=== PATIENT | male | born 1975 | race Native Hawaiian/Other Pacific Islander ===

== ENCOUNTER 2016-09-13 06:50 | Emergency (ER) | payer OTHER ==
[2016-09-13 07:07] VITALS: BP 108/64
[2016-09-13 07:38] LABS: Basophils % (Auto) 1.2 % (0.0-1.8); Eosinophils % (Auto) 13.1 % (0.0-4.3); Hematocrit 41.7 % (35.5-45.6); Mean Corpuscular HGB Conc 34 % (32-34); Mean Corpuscular Hemoglobin 31 pg (28-32); Mean Corpuscular Volume 93 fl (84-94); Platelet Count 223 K/mm3 (140-440); Red Blood Count 4.48 M/mm3 (3.65-5.03); Red Cell Distribution Width 13.1 % (13.2-15.2); White Blood Count 5.6 K/mm3 (4.5-11.0)
--- NOTE | 2016-09-13 07:48 | Emergency Department Report ---
ED Shortness of Breath HPI - General Chief Complaint: Dyspnea/Respdistress Stated Complaint: CHEST PAIN / JIGNESH Time Seen by Provider: 09/13/16 07:33 Source: patient, family Mode of arrival: Ambulatory Limitations: No Limitations - History of Present Illness Initial Comments: Patient here with his family complaining of left-sided chest pain 4 weeks. Reports shortness of breath. No nausea vomiting. No radiation of pain. Denies any trauma. This is pain on and off. Reports pain is worse when he takes a deep breath breath and denies any cough or nasal congestion. Denies any fever or chills. Denies taking any hormone, long distance travel by car or airplane, personal history of blood clots or family history of blood clots. Pain is 4 out of 10 feels sharp. [id number] pain medication did not help. Patient has no history of heart disease he has a history of childhood asthma. MD Complaint: shortness of breath, cough, chest pain, pain with inspiration Onset/Timin -: week(s) Radiation: other (none) Severity: mild Pain Scale: 4 Quality: sharp Consistency: intermittent Improves With: rest Worsens With: movement, inspiration Known History Of: asthma (childhood) Context: other (unknown) Associated Symptoms: chest pain, pain with inspiration Treatments Prior to Arrival: none - Related Data Home Oxygen Therapy: No Previous Rx's Medication Instructions Recorded Last Taken Type Ibuprofen [Motrin] 600 mg PO Q8H PRN #15 tablet 09/13/16 Unknown Rx Allergies Allergy/AdvReac Type Severity Reaction Status Date / Time No Known Allergies Allergy Verified 09/13/16 06:59 ED Review of Systems ROS: Stated complaint: CHEST PAIN / JIGNESH Other details as noted in HPI Comment: All other systems reviewed and negative Constitutional: denies: chills, fever ENT: denies: ear pain, throat pain, congestion Respiratory: shortness of breath, SOB with exertion, SOB at rest. denies: cough , orthopnea, wheezing Cardiovascular: chest pain. denies: palpitations, edema, syncope Gastrointestinal: denies: abdominal pain, nausea, vomiting, diarrhea Musculoskeletal: denies: back pain, joint swelling, arthralgia, myalgia Skin: denies: rash Neurological: denies: headache, weakness, numbness, paresthesias, confusion, abnormal gait, vertigo ED Past Medical Hx - Past Medical History Previous Medical History?: Yes Hx Asthma: Yes (as a child) - Surgical History Past Surgical History?: No - Family History Family history: asthma - Social History Smoking Status: Former Smoker Substance Use Type: None - Medications Home Medications: Home Medications Medication Instructions Recorded Confirmed Last Taken Type Ibuprofen [Motrin] 600 mg PO Q8H PRN #15 tablet 09/13/16 Unknown Rx ED Physical Exam - General Limitations: No Limitations General appearance: alert, in no apparent distress - Head Head exam: Present: atraumatic, normocephalic, normal inspection - Eye Eye exam: Present: normal appearance, PERRL, EOMI. Absent: nystagmus, periorbital swelling, periorbital tenderness Pupils: Present: normal accommodation - ENT ENT exam: Present: normal exam, normal orophraynx, mucous membranes moist, TM's normal bilaterally, normal external ear exam - Neck Neck exam: Present: normal inspection, full ROM. Absent: tenderness, meningismus, lymphadenopathy - Respiratory Respiratory exam: Present: normal lung sounds bilaterally, chest wall tenderness (left chest wall tender to palpate). Absent: respiratory distress, wheezes, rales, rhonchi, stridor, accessory muscle use, decreased breath sounds , prolonged expiratory - Cardiovascular Cardiovascular Exam: Present: normal rhythm, bradycardia (asymptomatic), normal heart sounds. Absent: systolic murmur, diastolic murmur - GI/Abdominal GI/Abdominal exam: Present: soft, normal bowel sounds. Absent: distended, tenderness, guarding, rebound, rigid - Extremities Exam Extremities exam: Present: normal inspection, full ROM, normal capillary refill. Absent: tenderness, pedal edema, joint swelling, calf tenderness - Back Exam Back exam: Present: normal inspection, full ROM. Absent: tenderness, CVA tenderness (R), CVA tenderness (L), muscle spasm, paraspinal tenderness, vertebral tenderness, rash noted - Neurological Exam Neurological exam: Present: alert, oriented X3, normal gait, reflexes normal. Absent: motor sensory deficit - Psychiatric Psychiatric exam: Present: normal affect, normal mood - Skin Skin exam: Present: warm, dry, intact, normal color. Absent: rash ED Course Vital Signs 09/13/16 06:50 Temperature 98.2 F Pulse Rate 54 L Respiratory 20 Rate Blood Pressure 108/64 [Right] O2 Sat by Pulse 100 Oximetry - Reevaluation(s) Reevaluation #1: 09/13/16 09:33 Patient had lab work with negative cardiac enzymes and other labs are stable. Awaiting CTA of the chest results. Patient is stable and in no acute distress. ED Medical Decision Making - Lab Data Result diagrams: 09/13/16 07:21 09/13/16 07:21 Lab Results 09/13/16 09/13/16 09/13/16 Range/Units 07:21 07:21 07:21 WBC (4.5-11.0) K/mm3 RBC (3.65-5.03) M/mm3 Hgb (11.8-15.2) gm/dl Hct (35.5-45.6) % MCV (84-94) fl MCH (28-32) pg MCHC (32-34) % RDW (13.2-15.2) % Plt Count (140-440) K/mm3 Lymph % (Auto) (13.4-35.0) % Thurston % (Auto) (0.0-7.3) % Eos % (Auto) (0.0-4.3) % Baso % (Auto) (0.0-1.8) % Lymph # (1.2-5.4) K/mm3 Thurston # (0.0-0.8) K/mm3 Eos # (0.0-0.4) K/mm3 Baso # (0.0-0.1) K/mm3 Seg Neutrophils % (40.0-70.0) % Seg Neutrophils # (1.8-7.7) K/mm3 VBG pH 7.367 (7.320-7.420) Sodium 141 (137-145) mmol/L Potassium 3.9 (3.6-5.0) mmol/L Chloride 101.8 (98-107) mmol/L Carbon Dioxide 27 (22-30) mmol/L Anion Gap 16 mmol/L BUN 12 (9-20) mg/dL Creatinine 0.9 (0.8-1.5) mg/dL Estimated GFR > 60 ml/min BUN/Creatinine Ratio 13.33 % Glucose 99 (75-100) mg/dL Lactic Acid 1.00 (0.7-2.0) mmol/L Calcium 8.8 (8.4-10.2) mg/dL Magnesium 2.40 H (1.7-2.3) mg/dL Total Creatine Kinase 95 (55-170) units/L CK-MB (CK-2) < 1.0 (0.0-4.0) ng/mL CK-MB (CK-2) Rel Index 1.0 (0-4) Troponin T < 0.010 (0.00-0.029) ng/mL 09/13/16 Range/Units 07:21 WBC 5.6 (4.5-11.0) K/mm3 RBC 4.48 (3.65-5.03) M/mm3 Hgb 14.0 (11.8-15.2) gm/dl Hct 41.7 (35.5-45.6) % MCV 93 (84-94) fl MCH 31 (28-32) pg MCHC 34 (32-34) % RDW 13.1 L (13.2-15.2) % Plt Count 223 (140-440) K/mm3 Lymph % (Auto) 34.7 (13.4-35.0) % [place] % (Auto) 11.2 H (0.0-7.3) % Eos % (Auto) 13.1 H (0.0-4.3) % Baso % (Auto) 1.2 (0.0-1.8) % Lymph # 1.9 (1.2-5.4) K/mm3 Thurston # 0.6 (0.0-0.8) K/mm3 Eos # 0.7 H (0.0-0.4) K/mm3 Baso # 0.1 (0.0-0.1) K/mm3 Seg Neutrophils % 39.8 L (40.0-70.0) % Seg Neutrophils # 2.2 (1.8-7.7) K/mm3 VBG pH (7.320-7.420) Sodium (137-145) mmol/L Potassium (3.6-5.0) mmol/L Chloride (98-107) mmol/L Carbon Dioxide (22-30) mmol/L Anion Gap mmol/L BUN (9-20) mg/dL Creatinine (0.8-1.5) mg/dL Estimated GFR ml/min BUN/Creatinine Ratio % Glucose (75-100) mg/dL Lactic Acid (0.7-2.0) mmol/L Calcium (8.4-10.2) mg/dL Magnesium (1.7-2.3) mg/dL Total Creatine Kinase (55-170) units/L CK-MB (CK-2) (0.0-4.0) ng/mL CK-MB (CK-2) Rel Index (0-4) Troponin T (0.00-0.029) ng/mL - EKG Data -: EKG Interpreted by Me (Dr. Esquivel) EKG shows normal: sinus rhythm (66 bpm with sinus arrhythmia) Rate: normal - EKG Data Interpretation: no acute changes - Radiology Data Radiology results: report reviewed interpreted by me: Chest x-ray revealed no acute cardiopulmonary findings. CTA angiogram reports that lungs are clear, no effusion no aorta abnormalities and no pulmonary embolism. - Medical Decision Making ED course: Patient resented emergency room with his sees complaining of chest pain on and off to the left side 4 weeks. He quit smoking 3 years ago. Cardiac risk factor is low and no risks for DVT. I discussed lab work with patient and his and no significant abnormalities noted. Troponin is negative and EKG sinus rhythm with sinus arrhythmia at 66 bpm. CTA angiogram reveals no pulmonary embolism, normal aorta, lungs are clear without any effusion. Chest x-ray revealed no acute cardiopulmonary processes. These results were explained to patient and family member and they voiced understanding. I discussed with patient that this chest pain continues she will need to follow-up with mirror fabrication supervisor otherwise he can be discharged home. Patient discharged home with his with prescription for Motrin Critical care attestation.: If time is entered above; I have spent that time in minutes in the direct care of this critically ill patient, excluding procedure time. ED Disposition Clinical Impression: Atypical chest pain, Pleurisy Disposition: DC-01 TO HOME OR SELFCARE Is pt being admited?: No Does the pt Need Aspirin: No Condition: Stable Instructions: Chest Pain (ED), Pleurisy (ED) Additional Instructions: Please take medication as prescribed. If chest pain continues she'll need to follow-up with a mirror fabrication supervisor for possible stress test or echocardiogram. Prescriptions: Ibuprofen [Motrin] 600 mg PO Q8H PRN #15 tablet PRN Reason: Pain Referrals: [facility] [Outside] - 2-3 Days CAIO BAEZ MD [Staff Physician] - 2-3 Days Forms: Accompanied Note, Work/School Release Form(ED)
[2016-09-13 07:57] LABS: Anion Gap 16 mmol/L; BUN/Creatinine Ratio 13.33; Blood Urea Nitrogen 12 mg/dL (9-20); Calcium 8.8 mg/dL (8.4-10.2); Carbon Dioxide 27 mmol/L (22-30); Chloride 101.8 mmol/L (98-107); Creatine Kinase 95 units/L (55-170); Glucose 99 mg/dL (75-100); Potassium 3.9 mmol/L (3.6-5.0); Sodium 141 mmol/L (137-145)
[2016-09-13 08:02] LABS: Creatine Kinase MB < 1.0 ng/mL (0.0-4.0)
--- NOTE | 2016-09-13 09:01 | Cat Scan Report ---
FINAL REPORT EXAM: CT ANGIO CHEST HISTORY: sob/cp TECHNIQUE: CT angiography of the chest was performed. 100 cc Omnipaque 350 IV was administered. Coronal and sagittal reformatted images were obtained. Rotational MIPS reformatted images also obtained.. PRIORS: None. FINDINGS: There is no aortic dissection seen. There is no significant mediastinal or hilar mass seen. There are no filling defects seen within the pulmonary arterial circulation to suggest pulmonary embolism. There are no pleural effusions seen. The lungs are clear. There is no pneumothorax seen. There is no pulmonary embolism or aortic dissection seen. IMPRESSION: There is no pulmonary embolism or aortic dissection seen.
[2016-09-13] MEDS ORDERED: MOTRIN PO ONE (09:39)
--- NOTE | 2016-09-13 14:30 | XRay Report ---
FINAL REPORT PROCEDURE: XR CHEST ROUTINE 2V TECHNIQUE: Two views of the chest are obtained HISTORY: Shortness of breath COMPARISON: CTA chest dated the same day FINDINGS: The heart is normal in size. There is no focal infiltrate, pneumothorax or pleural effusion. IMPRESSION: No abnormalities are seen.
== END 2016-09-13 09:45 | disposition home or self-care (01) ==
LOC: ED 06:50
DX: R09.1 Pleurisy (principal); J45.909 Unspecified asthma, uncomplicated; Z87.891 Personal history of nicotine dependence
CPT/HCPCS: 36415; 71020; 71275; 80048; 82140; 82550; 82553; 82805; 83735; 84484; 85025; 93005; 93010; 99284; Q9967